=== PATIENT | male | born 1955 | race Caucasian/White ===

== ENCOUNTER 2018-06-25 05:56 | Day surgery (SDC) | payer MEDICARE ==
[~2018-06-25 05:56] MED LIST: ACETAMINOPHEN325 MG PO; ALPRAZOLAM ER1 MG PO; CLOPIDOGREL75 MG PO; DUONEB IN; FUROSEMIDE40 MG PO; LIPITOR40 M1 PO; METOLAZONE5 MG PO; METOPROL TAR25 M1 PO; MUCINEX DM MAXI1 TAB PO; PERCOCET1 TA4 PO; PROAIR HFA IN; TAMSULOSIN HCL0.4 MG PO
[2018-06-25 08:18] VITALS: BP 121/66
[2018-06-25] MEDS ORDERED: PERCOCET1 TA4 PO ×2 (08:31→08:32)
[2018-06-25] MEDS ORDERED: OXYCODONE HCL15 MG PO (08:38)
== END 2018-06-25 08:35 | disposition home or self-care (01) ==
LOC: ORM 05:56
PROVIDERS: ATTEND Anesthesiology Pain Medicine
PROC: 3E0T3BZ Introduction of Anesthetic Agent into Peripheral Nerves and Plexi, Percutaneous Approach (ICD-10-PCS; principal; 2018-06-25)
PROC: 3E0T33Z Introduction of Anti-inflammatory into Peripheral Nerves and Plexi, Percutaneous Approach (ICD-10-PCS; 2018-06-25)
PROC: BR141ZZ Fluoroscopy of Cervical Facet Joint(s) using Low Osmolar Contrast (ICD-10-PCS; 2018-06-25)
PROC: BR151ZZ Fluoroscopy of Thoracic Facet Joint(s) using Low Osmolar Contrast (ICD-10-PCS; 2018-06-25)
DX: M54.2 Cervicalgia (principal); M54.6 Pain in thoracic spine